=== PATIENT | male | born 1955 | race Caucasian/White ===

== ENCOUNTER 2019-03-27 20:58 | Emergency (ER) | payer SELFPAY ==
[2019-03-27 21:08] VITALS: BP 138/83; PULSE 50; RESP 14; TEMP 36.5; O2SAT 97; BMI 23.0
--- NOTE | 2019-03-27 21:12 | DI.RAD.S_ITS ---
PROCEDURE: XR FINGER LT MIN 2V INDICATIONS: Hatchet to L thumb TECHNIQUE: AP hand, 2 views of the first finger(s) acquired. COMPARISON: None. FINDINGS: Bones: No fractures or dislocations. No suspicious bony lesions. Foreshortened deformity of the second digit Soft tissues: No suspicious soft tissue calcifications. IMPRESSION: 1. No acute fracture. 2. Chronic appearing second digit deformity.. Dictated by: Maddy Cook M.D. on 03/27/2019 at 21:45 Approved by: Maddy Cook M.D. on 03/27/2019 at 21:47
--- NOTE | 2019-03-27 21:19 | ED_ITS ---
HPI - Wound/Laceration General Chief Complaint: Wound/Laceration Stated Complaint: nicked his thumb left hand with hatchet Time Seen by Provider: 03/27/19 21:19 Source: patient Mode of arrival: Ambulatory Limitations: no limitations History of Present Illness HPI narrative: 63-year-old male comes to the emergency department stating he nicked his left thumb with a hatchet. He states that he was using his had it in the dark trying to light with his cell phone which did not provide good light. in he missed and hit his thumb. He states there is a small kyle in the nail and some superficial lacerations. He has some throbbing but he is able to flex and extend. He denies any numbness or tingling. He does not believe his tetanus is up-to-date. He denies any other injuries. He has not washed it yet. He states he is otherwise healthy, denies any medications. Denies any allergies to medications. He lives on [facility] and came here via [facility]. Related Data Home Medications Medication Instructions Recorded Confirmed No Known Home Medications 03/27/19 03/27/19 Allergies Allergy/AdvReac Type Severity Reaction Status Date / Time No Known Drug Allergies Allergy Verified 03/27/19 21:12 Review of Systems Review of Systems ROS Unobtainable: All systems reviewed & are unremarkable except as noted in HPI and below Patient History Social History Smoking Status: Never smoker alcohol intake frequency: 0-2 drinks per day Alcohol type: beer Substance Use Type: does not use Exam Narrative Exam Narrative: GENERAL: Alert and oriented x three, thin, well-appearing male in mild distress. HEENT: Head normocephalic, atraumatic, EOMI, pupils reactive, face symmetric, moist mucous membranes NECK: Supple, full range of motion EXTREMITIES: Normal range of motion, no clubbing. Patient has mild edema. Patient has a very superficial laceration extending on the radial side that is not gapped along the edge of the nail and a superficial laceration to the nail that is not full thickness. Patient has some dried blood surrounding. Nail appears to be secured and is not easily movable. No subungual hernias noted. Patient has full range of motion. He is mildly tender to touch. He has cap refill less than 2 seconds with normal sensation. Neurovascularly intact NEUROLOGICAL: Cranial nerves II through XII grossly intact. Moving all extremities SKIN: Warm, dry, no petechiae, no rashes or lesions other than noted above. Initial Vital Signs Initial Vital Signs: Vital Signs Temperature 97.7 F 03/27/19 21:08 Pulse Rate 50 L 03/27/19 21:08 Respiratory Rate 14 03/27/19 21:08 Blood Pressure 138/83 03/27/19 21:08 Pulse Oximetry 97 03/27/19 21:08 Course Orders Ordered: ED Orders 03/27/19 21:12 XR finger LT min 2V Stat Discontinued Medications Diphtheria/Tetanus/Acell Pertussis (Adacel) 0.5 ml IM .ONCE ONE Stop: 03/27/19 21:31 Vital Signs Vital signs: Vital Signs - 8 hr 03/27/19 21:08 03/27/19 22:09 Temperature 97.7 F Pulse Rate 50 L 50 L Respiratory Rate 14 14 Blood Pressure 138/83 138/83 Pulse Oximetry 97 97 MDM - Wound/Laceration Imaging Data finger xray: Radiologist's impression: [address] [address] XRay Report Signed Patient: Lane Ko JMR#: [id number] : 6Acct:[id number] Age/Sex: 63 / MDate of Service: 03/27/19 Loc: ED Accession Number: [id number] Procedure: XR finger LT min 2V Ordering Provider: Daniela Biggs D.O. PROCEDURE: XR FINGER LT MIN 2V INDICATIONS: Hatchet to L thumb TECHNIQUE: AP hand, 2 views of the first finger(s) acquired. COMPARISON: None. FINDINGS: Bones: No fractures or dislocations. No suspicious bony lesions. Foreshortened deformity of the second digit Soft tissues: No suspicious soft tissue calcifications. IMPRESSION: 1. No acute fracture. 2. Chronic appearing second digit deformity.. Dictated by: Maddy Cook M.D. on 03/27/2019 at 21:45 Approved by: Maddy Cook M.D. on 03/27/2019 at 21:47 [facility] Narrative Medical decision making narrative: wound was washed out and irrigated. Very superficial laceration not requiring repair. We did discuss that although he does not have a subungual hematoma there is potential that his nail will ultimately follow up. Patient is comfortable with this he has had prior distal digital amputation the past. Tetanus was updated. Patient deferred any oral antibiotics he has quite superficial lacerations we discussed he needs to keep a close eye and he sees any signs of infection needs to return or to the closest physician to get started on antibiotics. Patient feels comfortable with the plan. Discharge Plan Departure Patient Disposition: Home Clinical Impression: Finger laceration Qualifiers: Encounter type: initial encounter Finger: thumb Damage to nail status: with damage Foreign body presence: without foreign body Laterality: left Qualified Code(s): S61.112A - Laceration without foreign body of left thumb with damage to nail, initial encounter Discharge Date/Time: 03/27/19 22:10 Instructions: DI for Minor Laceration Activity Restrictions/Additional Instructions: Follow-up in the next 5-7 days if your thumb is not healing properly. You may take ibuprofen up to 800 mg every 8 hours and Tylenol up to a 1000 mg every 8 hours as needed for pain Wound Care: Keep wound(s) clean and dry. Wash twice daily with soap and water only. Do not use over the counter products (alcohol or peroxide)on the wounds unless instructed by a physician. If wound condition worsens (increased/expanding redness, developing fluid blisters, or worsening pain), either contact your doctor for an urgent re- assessment , or return to the Emergency Department. Return to the Emergency Department for any new or worsening symptoms. Return if fever greater than 100.4 Fahrenheit, increased swelling, increasing pain or worsening symptoms such as increased discharge or spreading redness. Prescriptions: No Action No Known Home Medications RF: 0
[2019-03-27 22:09] VITALS: BP 138/83; PULSE 50; RESP 14; O2SAT 97
== END 2019-03-27 22:10 | disposition home or self-care (01) ==
PROVIDERS: Emergency Provider Emergency Medicine
DX: S61.112A Laceration without foreign body of left thumb with damage to nail, initial encounter (principal); W26.8XXA Contact with other sharp object(s), not elsewhere classified, initial encounter; Z23 Encounter for immunization
CPT/HCPCS: 73140; 96372; 99283

== ENCOUNTER → 2021-08-26 17:25 | Outpatient (CLI) | payer MEDICARE, SELFPAY ==
--- NOTE | 2021-08-26 17:29 | DI.RAD.S_ITS ---
PROCEDURE: XR HAND RT MIN 3V INDICATIONS: Splinter in palm (thenar eminence) TECHNIQUE: 3 views of the hand acquired. COMPARISON: None. FINDINGS: Bones: No acute fractures or dislocations. Carpal bones are normally aligned. No suspicious bony lesions. Soft tissues: No suspicious soft tissue calcifications. No radiopaque foreign body is seen. IMPRESSION: No osseous abnormality. No radiopaque foreign body. Wooden foreign bodies may be radiolucent. Targeted ultrasound or MRI could be obtained for further evaluation of the soft tissues if indicated clinically. Dictated by: Dre Solis M.D. on 08/26/2021 at 17:56 Approved by: Dre Solis M.D. on 08/26/2021 at 17:57
== END ==
PROVIDERS: PCP Family Medicine; Referring Provider Student in an Organized Health Care Education/Training Program; Visit Provider Student in an Organized Health Care Education/Training Program
DX: S60.551A Superficial foreign body of right hand, initial encounter (principal); W45.8XXA Other foreign body or object entering through skin, initial encounter
CPT/HCPCS: 73130

== ENCOUNTER → 2022-07-08 09:03 | Outpatient (CLI) | payer MEDICARE, SELFPAY ==
[2022-07-08 20:16] LABS: Add Manual Diff / Slide Review NO; Basophils Absolute Auto 0 /uL (0-100); Basophils Percent Auto 0.5 % (0-2); Eosinophils Absolute Auto 100 /uL (0-450); Eosinophils Percent Auto 2.7 % (2-4); Hematocrit 45.6 % (41-53); Hemoglobin 15.4 g/dL (13.5-17.5); Lymphocytes Absolute Auto 1000 /uL (1100-4500); Lymphocytes Percent Auto 20.4 % (25-40); Mean Corpuscular HGB Conc 33.7 % (30-36); Mean Corpuscular Hemoglobin 30.8 PG (26-34); Mean Corpuscular Volume 91.3 fL (80-100); Monocytes Absolute Auto 400 /uL (0-900); Monocytes Percent Auto 7.7 % (3-14); Neutrophils Absolute Auto 3400 /uL (1500-7000); Neutrophils Percent Auto 68.7 % (50-75); Platelet Count 196 X10^3/uL (150-400); Red Cell Distribution Width 13.6 % (11.6-14.8)
[2022-07-08 23:05] LABS: Alanine Aminotransferase 52 IU/L (<50); Albumin 4.2 g/dL (3.5-5.0); Albumin Globulin Ratio 1.6 (1.0-2.8); Alkaline Phosphatase 75 U/L (38-126); Aspartate Aminotransferase 35 IU/L (17-59); BUN Creatinine Ratio 21.4 (6-22); Bilirubin Total 0.8 mg/dL (0.2-1.3); Blood Urea Nitrogen 21 mg/dL (9-20); Calcium 8.7 mg/dL (8.4-10.2); Carbon Dioxide 28 mmol/L (22-32); Chloride 101 mmol/L (98-107); Cholesterol 259 mg/dL (140-199); Estimated Glomerular Filt Rate > 60 mL/min (>60); Globulin 2.7 g/dL (1.7-4.1); Glucose 91 mg/dL (80-110); HDL Cholesterol 62 mg/dL (40-60); HEMOLYSIS < 15 (0-50); LDL Cholesterol Calculated 183 mg/dL (<100); Potassium 4.6 mmol/L (3.4-5.1); Sodium 136 mmol/L (137-145); Total Protein 6.9 g/dL (6.3-8.2); Triglycerides 72 mg/dL (35-150)
[2022-07-08 23:36] LABS: Prostate Specific Antigen Scrn 0.778 ng/mL (0.1-4.0)
== END ==
PROVIDERS: PCP Family Medicine; Visit Provider Family Medicine
DX: Z00.00 Encounter for general adult medical examination without abnormal findings (principal); E78.00 Pure hypercholesterolemia, unspecified; R03.0 Elevated blood-pressure reading, without diagnosis of hypertension; Z12.5 Encounter for screening for malignant neoplasm of prostate
CPT/HCPCS: 80053; 80061; 85025; G0103

== ENCOUNTER → 2023-03-24 12:17 | Outpatient (CLI) | payer MEDICARE, SELFPAY ==
--- NOTE | 2023-03-24 12:19 | DI.US.S_ITS ---
PROCEDURE: US ABDOMEN LIMITED INDICATIONS: LEFT LOWER CHEST/UPPER ABDOMINAL MASS TECHNIQUE: Soft tissue ultrasound of the left upper chest wall was obtained COMPARISON: None. FINDINGS: The site of clinical concern, there is an hypoechoic heterogenous well-defined structure measuring 3.7 x 1.0 x 3.6 cm without internal vascularity. IMPRESSION: 1. Probable soft tissue lipoma Approved by: Duane Adams M.D. on 03/24/2023 at 14:09
--- NOTE | 2023-03-24 12:19 | DI.US.S_ITS ---
PROCEDURE: US SCROTUM INDICATIONS: RIGHT TESTICULAR PAIN TECHNIQUE: Real-time scanning was performed of the scrotum and testicles, with image documentation. Color and pulse Doppler interrogation was performed of both testicles. COMPARISON: None. FINDINGS: Right: Testicle is normal in size at 4.4 x 2.1 x 2.9 cm, and homogenous in echotexture. Epididymis is normal in overall size and morphology. No hydrocele or varicoceles. There are multiple epididymal cysts with the largest measuring approximately 0.8 cm in size. There is a small echogenic focus measuring approximately 0.4 cm size with mild shadowing noted at the epididymal tail. Overlying scrotal skin is normal in thickness. Left: Testicle is normal in size at 3.5 x 2.6 x 3.0 cm, and homogeneous in echotexture. Epididymis is normal in overall size and morphology. Multiple septated epididymal cysts are identified with the largest measuring approximately 3.0 x 3.7 x 1.1 cm. Small hydrocele . No varicoceles. Overlying scrotal skin is normal in thickness. Doppler: Color and pulse Doppler demonstrate normal and symmetric arterial flow in both testicles. IMPRESSION: No acute sonographic abnormalities identified in the bilateral testicles. Multiple bilateral epididymal cysts. Nonspecific nonvascular echogenic focus near the right epididymal tail. Otherwise, no suspicious testicular or epididymal masses. Dictated by: Norbert Weir M.D. on 03/24/2023 at 15:28 Approved by: Norbert Weir M.D. on 03/24/2023 at 15:37
== END ==
PROVIDERS: PCP Family Medicine; Referring Provider Physician Assistant; Visit Provider Physician Assistant
DX: R19.02 Left upper quadrant abdominal swelling, mass and lump (principal); N50.811 Right testicular pain; N50.3 Cyst of epididymis
CPT/HCPCS: 76705; 76870

== ENCOUNTER → 2023-06-04 09:29 | Outpatient (CLI) | payer MEDICARE, SELFPAY ==
[2023-06-04 20:46] LABS: Cholesterol 272 mg/dL (140-199); Glucose 102 mg/dL (80-110); HDL Cholesterol 59 mg/dL (40-60); LDL Cholesterol Calculated 199 mg/dL (<100); Triglycerides 70 mg/dL (35-150)
[2023-06-04 21:27] LABS: Prostate Specific Antigen Scrn 0.671 ng/mL (0.1-4.0)
[2023-06-04 21:39] LABS: Hep C Virus Ab w/Reflex Quant NEGATIVE s/c (NEGATIVE)
== END ==
PROVIDERS: PCP Family Medicine; Visit Provider Family Medicine
DX: Z13.1 Encounter for screening for diabetes mellitus (principal); E78.2 Mixed hyperlipidemia; Z12.5 Encounter for screening for malignant neoplasm of prostate; Z13.220 Encounter for screening for lipoid disorders; Z11.59 Encounter for screening for other viral diseases
CPT/HCPCS: 80061; 82947; 86803; G0103

== ENCOUNTER → 2024-02-25 08:46 | Outpatient (CLI) | payer MEDICARE, OTHER, SELFPAY | PROVIDERS: PCP Family Medicine; Visit Provider Physician Assistant Medical | DX: R10.9 Unspecified abdominal pain (principal) | CPT/HCPCS: 87045; 87086; 87177 ==

== ENCOUNTER → 2024-02-26 11:47 | Outpatient (CLI) | payer MEDICARE, OTHER, SELFPAY ==
--- NOTE | 2024-02-26 11:49 | DI.US.S_ITS ---
PROCEDURE: US ABDOMEN COMPLETE INDICATIONS: GENERALIZED PAIN; LIPOMA ANTERIOR LEFT WALL TECHNIQUE: Real-time scanning was performed of the abdominal and retroperitoneal organs, with image documentation. COMPARISON: [facility], , US ABDOMEN LIMITED, 03/24/2023, 13:00. FINDINGS: Liver: Liver is normal in size and homogeneous in echotexture. Gallbladder: No stones. Wall thickness is normal. Biliary ducts: Intrahepatic bile ducts are non-dilated. Extrahepatic bile duct caliber measures 5.7 mm. Normal is 6-7 mm or less in diameter, or 10 mm or less post-cholecystectomy. Pancreas: Visualized portions of the pancreas are sonographically normal. Spleen: Spleen is normal in size and homogeneous in echotexture. Kidneys: Kidneys are normal in size and echotexture. Right kidney measures 9.9 cm long; left kidney measures 10.0 cm long. No hydronephrosis or nephrolithiasis. No solid masses. Aorta: Visualized aorta is normal in caliber at less than 3 cm. Iliacs: Proximal common iliac arteries are normal in caliber at less than 2.5 cm. IVC: Intrahepatic inferior vena cava is patent. Focus of echogenicity stable in size is present within the anterior wall without increased vascularity. Miscellaneous: No free abdominal fluid. IMPRESSION: Stable appearance of anterior abdominal wall lipoma. Dictated by: Irlanda Rosado M.D. on 02/26/2024 at 16:02 Approved by: Irlanda Rosado M.D. on 02/26/2024 at 16:05
== END ==
PROVIDERS: PCP Family Medicine; Referring Provider Physician Assistant Medical; Visit Provider Physician Assistant Medical
DX: D17.1 Benign lipomatous neoplasm of skin and subcutaneous tissue of trunk (principal); R10.9 Unspecified abdominal pain
CPT/HCPCS: 76700

== ENCOUNTER → 2024-03-22 07:45 | Outpatient (CLI) | payer MEDICARE, OTHER, SELFPAY | PROVIDERS: PCP Family Medicine; Visit Provider Family Medicine | DX: R19.5 Other fecal abnormalities (principal); R10.9 Unspecified abdominal pain; A07.8 Other specified protozoal intestinal diseases | CPT/HCPCS: 83993 ==

== ENCOUNTER 2024-04-29 07:10 | Day surgery (SDC) | payer MEDICARE, OTHER, SELFPAY ==
--- NOTE | 2024-04-29 | PATH_ITS ---
[facility] Accession Number: [id number] No. of containers.. Tissue . 01 Material submitted: . PART A: small bowel - TERMINAL ILEUM PART B: colon - ASCENDING COLON PART C: colon - TRANSVERSE COLON PART D: colon - DESCENDING COLON PART E: colon - SIGMOID PART F: rectum - RECTUM . 01 Diagnosis: A. TERMINAL ILIUM, BIOPSY: Small intestinal mucosa with no significant diagnostic abnormality. Negative for active inflammation, dysplasia, or malignancy. - B. ASCENDING COLON: Colonic mucosa with no significant diagnostic abnormality. Negative for active, chronic, or microscopic colitis. Negative for dysplasia or malignancy. - C. TRANSVERSE COLON: Colonic mucosa with no significant diagnostic abnormality. Negative for active, chronic, or microscopic colitis. Negative for dysplasia or malignancy. - D. DESCENDING COLON: Colonic mucosa with no significant diagnostic abnormality. Negative for active, chronic, or microscopic colitis. Negative for dysplasia or malignancy. - E. SIGMOID COLON: Colonic mucosa with no significant diagnostic abnormality. Negative for active, chronic, or microscopic colitis. Negative for dysplasia or malignancy. - F. RECTUM: Colorectal mucosa with no significant diagnostic abnormality. Negative for active, chronic, or microscopic colitis. Negative for dysplasia or malignancy. [facility] 05/02/2024 1617 Local . 01 Electronically signed: . Gloria Roth MD, Pathologist NPI- [id number] . 01 Gross description: . Part A: TERMINAL ILEUM: Received in formalin is 1 fragment(s) of cifuentes, soft tissue measuring 0.2 x 0.2 x 0.2 cm submitted entirely in 1 cassette(s) Part B: ASCENDING COLON: Received in formalin are 2 fragment(s) of cifuentes, soft tissue measuring 0.1 x 0.1 x 0.1 cm to 0.3 x 0.2 x 0.2 cm submitted entirely in 1 cassette(s) Part C: TRANSVERSE COLON: Received in formalin are 2 fragment(s) of cifuentes, soft tissue measuring 0.1 x 0.1 x 0.1 cm to 0.2 x 0.2 x 0.2 cm submitted entirely in 1 cassette(s) Part D: DESCENDING COLON: Received in formalin are 2 fragment(s) of cifuentes, soft tissue measuring 0.2 x 0.2 x 0.2 cm to 0.3 x 0.3 x 0.2 cm submitted entirely in 1 cassette(s) Part E: SIGMOID : Received in formalin are 2 fragment(s) of cifuentes, soft tissue measuring 0.2 x 0.2 x 0.2 cm to 0.3 x 0.2 x 0.2 cm submitted entirely in 1 cassette(s) Part F: RECTUM: Received in formalin are 2 fragment(s) of cifuentes, soft tissue measuring 0.2 x 0.2 x 0.2 cm in aggregate submitted entirely in 1 cassette(s) /[facility] 04/29/2024 2345 Local . 01 Pathologist provided ICD-10: Z12.11 . 01 CPT . 066325, 324544, 291046, 869912, 210423, 563934 Specimen Comment: A courtesy copy of this report has been sent to [facility] Pathology Performed at: [address] [id number] MD Gama Jimenez MD Phone: [phone]
[2024-04-29 07:31] VITALS: BP 117/68; PULSE 54; RESP 17; TEMP 36.3; O2SAT 97
[2024-04-29] MEDS: FLEETS ENEMA 1 EACH PR (07:49)
--- NOTE | 2024-04-29 08:07 | P.HP_ITS ---
History of Present Illness History of Present Illness Date Patient Seen: 04/29/24 Time Patient Seen: 08:07 Chief complaint: Screening Colonoscopy Narrative: 69-year-old white male with diarrhea since before February. He has had some workup performed already, blastocystis hominis revealed as a parasite. No significant family history of Crohn's or ulcerative colitis [facility] Medical History Colon polyp Spondylitis Iritis Splinter of right hand Surgical History Vasectomy status Social History marital status: details: lives with and daughter (23). 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[employer]) leisure activities: exercise Smoking Status: Never smoker alcohol intake: current Meds Home Medications and Allergies Home Medications Medication Instructions Recorded Confirmed Type sodium,potassium,mag sulfates 17.5 See Rx Instructions PO .COMPLEX 04/28/24 Rx gram-3.13 gram-1.6 gram oral soln #354 mL (Suprep Bowel Prep Kit) Allergies Allergy/AdvReac Type Severity Reaction Status Date / Time No Known Drug Allergies Allergy Verified 04/29/24 07:22 Review of Systems Review of Systems ROS: Yes All systems reviewed with the patient and are negative except as otherwise documented Exam Vital Signs (past 8 hours): - 04/29/24 07:31 Temperature 97.3 F L Pulse Rate 54 L Respiratory Rate 17 Blood Pressure 117/68 Pulse Oximetry 97 Oxygen Delivery Method Room Air Oxygen Delivery Method Room Air Narrative Exam Narrative: Gen: NAD, sitting comfortably in bed, appears well HEENT: Sclera are anicteric, head is normocephalic and atraumatic, trachea is midline. CV: RRR, no JVD Resp: clear to auscultation bilaterally, equal chest wall movement bilaterally Abd: soft, nontender, normoactive bowel sounds Ext: no edema, full range of motion Neuro: Cranial nerves II-XII grossly intact, no focal deficits Skin: No erythema or ecchymosis Assessment & Plan Assessment and plan (1) Loose stools: Status: Acute (2) History of colonic polyps: Status: Acute Assessment & Plan narrative: Patient presents for surveillance colonoscopy for polyps, as well as biopsies for diarrhea Risks, benefits, alternatives to colonoscopy explained, including but not limited to bowel perforation or other serious complication requiring surgery at less than 1 in 5000 colonoscopies, abdominal pain, cramping or bleeding and less than 1% of colonoscopies, and the chances that we find a diagnosis that would require further intervention of about 2%. Patient agrees to proceed. Time-Based Coding :: [TOTAL MINUTES] spent with patient and on the chart (including review of chart, obtaining history, exam, reviewing outside data, placing orders, documenting exam and treatment plan, and counseling patient) on [DATE].
--- NOTE | 2024-04-29 08:42 | PM.OP.COLON ---
Operative Date/Time/Diagnoses Date of procedure: 04/29/24 Time of procedure: 08:42 Pre-op diagnosis: Diarrhea, personal history of polyps Post-op diagnosis: same Procedure & Clinicians Study performed: Colonoscopy with multiple random biopsies Same procedure as scheduled: Yes Indications: Diarrhea, personal history of polyps Surgeon: Stan Newell Procedure Notes SCOAP/Timeout: Performed Procedure in detail: Time-out was performed. Mac was induced. Patient was placed in left lateral decubitus position. The perineum was inspected without any gross abnormality. Lubricated pediatric colonoscope was inserted and advanced to the cecum. The terminal ileum was intubated. Random biopsies were taken of the terminal ileum. The colonoscope was withdrawn slowly inspecting the circumference of the colon. Random biopsies were taken of the ascending colon, transverse colon, descending colon, sigmoid colon and rectum. Very small polyps may have been missed, prep quality was adequate. Retroflexed view of the rectum showed small, non prolapsed nonbleeding internal hemorrhoids. The scope was withdrawn the patient was taken to PACU in good condition. Scope withdrawal time: 18 Sedation minutes: 29 Findings: internal hemorrhoids Specimen(s): other (1. Terminal ileum2. Ascending colon3. Transverse colon4. Descending colon5. Sigmoid colon6. Rectum) Complications: none Impression: Otherwise normal colonoscopy Post-procedure Recommendations: Colonoscopy in 10 years and High fiber diet (Gluten-free, lactose-free diet) Plan for aftercare: Home Follow up: as needed Disposition: PACU
[2024-04-29 08:46] VITALS: BP 98/58; PULSE 59; RESP 20; TEMP 36.2; O2SAT 94
[2024-04-29 08:51] VITALS: BP 103/59; PULSE 53; RESP 17; O2SAT 96
[2024-04-29 08:56] VITALS: BP 85/59; PULSE 53; RESP 15; O2SAT 97
[2024-04-29 09:03] VITALS: BP 113/54; PULSE 54; RESP 14; TEMP 36.8; O2SAT 98
== END 2024-04-29 09:24 | disposition home or self-care (01) ==
PROVIDERS: PCP Family Medicine; Referring Provider Surgery; Visit Provider Surgery
PROC: 0DJD8ZZ Inspection of Lower Intestinal Tract, Via Natural or Artificial Opening Endoscopic (ICD-10-PCS; CPT 45378; principal; 2024-04-29 08:15)
DX: R19.7 Diarrhea, unspecified (principal); Z86.0100 Personal history of colon polyps, unspecified; K64.8 Other hemorrhoids
CPT/HCPCS: 45380; J2704